=== PATIENT | male | born 1950 | race Caucasian/White ===

== ENCOUNTER 2018-03-05 20:08 | Emergency (ER) | payer OTHER, SELFPAY ==
[2018-03-05 20:15] VITALS: BP 146/76; PULSE 98; RESP 17; TEMP 36.6; O2SAT 95
--- NOTE | 2018-03-05 20:18 | DI.CT_ITS ---
SYMPTOM/DIAGNOSIS: FALL, STRUCK POSTERIOR OCCIPUT CT BRAIN: Noncontrast examination. No priors for comparison The ventricles and sulci are consistent with the patient's age. There is normal escamilla white matter differentiation. No intracranial hemorrhage, midline shift or mass effect identified. The ventricles are intact. The basilar cisterns are patent. No evidence of a skull fracture is seen. The visualized paranasal sinuses are clear. The mastoid air cells are well pneumatized. IMPRESSION: No acute intracranial process. CT CERVICAL SPINE: Multiple contiguous axial images of the cervical spine were obtained. Sagittal and coronal reformatted images were evaluated on the [employer] work station. There is straightening of the normal cervical lordosis. No acute fractures or subluxations are seen. Moderate degenerative changes are present throughout the cervical spine. The bones are normally mineralized. The soft tissues are unremarkable. The lung apices appear clear. IMPRESSION: No acute fracture or subluxation of the cervical spine.
--- NOTE | 2018-03-05 20:22 | W.ED.GENAD ---
Discharge Plan Disposition Patient Disposition: HOME Condition: Good Discharge Details Chief Complaint: GenMedical Clinical Impression: Back pain Primary Care Provider: Gustavo Schmidt ED Provider: Jorge Amaya Home Meds and New Rx's Prescriptions: New cyclobenzaprine 10 mg tablet 10 mg PO TID Qty: 14 RF: 0 acetaminophen [Mapap Extra Strength] 500 MG tablet 1,000 mg PO Q6H 5 Days Qty: 60 RF: 0 lidocaine [Lidoderm] 1 PATCH patch 1 patch Topical Q24H Qty: 4 RF: 0 ibuprofen [Motrin IB] 200 MG tablet 600 mg PO Q6H 5 Days Qty: 60 RF: 0 No Action pen needle, diabetic 1 EACH needle 1 ea Miscellaneous AC & HS Qty: 120 RF: 3 omeprazole 40 MG capsule,delayed release(DR/EC) 40 mg PO DAILY Qty: 90 RF: 2 blood sugar diagnostic [OneTouch Ultra Test] 1 EACH strip 1 ea Miscellaneous AC Qty: 120 RF: 4 lancets 1 EACH misc 1 ea Miscellaneous AC & HS Qty: 120 RF: 5 metformin 1,000 MG tablet 1,000 mg PO BID Qty: 180 RF: 4 escitalopram oxalate [Lexapro] 10 MG tablet 10 mg PO DAILY Qty: 90 RF: 4 diclofenac sodium 75 MG tablet,delayed release (DR/EC) 75 mg PO BID PRNQty: 180 RF: 3 gabapentin 300 MG capsule 300 mg PO HS Qty: 90 RF: 4 lisinopril 10 mg tablet 10 mg PO QAM Qty: 90 RF: 3 simvastatin 20 mg tablet 20 mg PO DAILY Qty: 90 RF: 3 quetiapine 200 mg tablet 200 mg PO HS Qty: 90 RF: 3 tamsulosin 0.4 mg capsule 0.4 mg PO DAILY Qty: 90 RF: 4 blood-glucose meter [xAdTouch Ultra2] 1 EACH kit 1 ea Miscellaneous AC Qty: 1 RF: 0 Discharge Instructions Instructions: Back Pain (ED) Additional Instructions: Please take medications as directed. Please do not operate any heavy machinery, climb ladders, or operate firearms while taking these. If you notice any worsening of your symptoms, or any new symptoms such as vomiting, diarrhea, fever, chills, shortness of breath, chest pain, numbness, numbness or tingling in your groin, bowel or bladder incontinence, weakness, or fainting , please return immediately to the emergency department for reevaluation. Please follow up with your primary care provider as soon as possible for reassessment and reevaluation. As always, it was a pleasure participating in your medical care today. Referrals: Gustavo Schmidt MD [Primary Care Provider] - Medical Decision Making This is a very pleasant 67-year-old male who presents for evaluation of trauma to his head. The patient was walking his dog when he slipped and hit the back of his head. He had no loss of consciousness but did see stars. He is on no blood thinners. Physical exam shows no signs of significant trauma,midline cervical spine tenderness. Because of the mechanism and the patient's age we did discuss imaging versus observation he is requesting imaging which I think is very reasonable. We will get a CT scan of the head and neck to rule out any acute osseous process. Patient does not want anything additional for pain management at this time. 9:05 PM Patient is feeling notably improved after medication administration. Patient's initial bladder scan showed 270 cc, he then subsequently urinated 300 cc of urine. He has no retained urine on exam. X-ray results demonstrate no acute bony process or fracture. There is some notable degenerative disc and facet disease in the lower lumbar spine which is unchanged from prior exam. I feel the patient signs and symptoms are clinically consistent with lumbar ago, muscle sprain, and SI joint pain. Patient continues to demonstrate no focal neurologic deficits, no saddle anesthesia, no significant weakness. I feel that he can be safely discharged home with close follow-up with his primary care provider next week. We discussed red flags for which to immediately return the patient understands. I have extensively reviewed the treatment plan and discharge instructions with the patient and their family. I have addressed all patient concerns at this time. The patient and family was made aware of what symptoms to monitor for that would warrant a return to the emergency department. Discussed the plan with the patient and family, they demonstrate verbal understanding and agreement with our assessment and plan at this time. IMPRESSION: Degenerative disc and facet disease mainly in the lower lumbar spine largely unchanged from the prior exam. IMPRESSION: No evidence of acute bony abnormality. HPI General Date/Time Provider Initiated Documentation: 03/05/18 20:10. HPI Narrative: This is a 67-year-old male with a past medical history of diabetes, hypertension, and spinal stenosis who presents today for evaluation of fall. The patient was out on his deck when he slipped secondary to ice, he slipped and hit the back of his head, he denies a loss of consciousness but he does state that he saw stars. He was able to get up with some assistance. He did experience mild abrasion on his right forearm, but denies any significant pain there. He denies any neck back or chest pain. He does have a mild headache in the back of his head. He did take diclofenac prior to arrival and does not want anything for pain at this time. He denies any aggravating or relieving factors. He denies any visual changes, he denies any numbness tingling or weakness. He has no other complaints at this time. He is not on any blood thinners. He denies any IV or illicit drug use. He denies any recent surgeries. Related Data Home Medications Medication Instructions Recorded Confirmed blood-glucose meter [One Touch #1 kit 08/24/13 02/18/18 Ultra 2] pen needle, diabetic #120 dis.needle 05/02/15 02/18/18 omeprazole 40 mg PO DAILY #90 tab-cap 04/13/17 02/18/18 blood sugar diagnostic [Onetouch #120 strip 04/23/17 02/18/18 Ultra Test Strips] lancets #120 ea 04/23/17 02/18/18 escitalopram oxalate [Lexapro] 10 mg PO DAILY #90 tab 06/15/17 02/18/18 metformin 1,000 mg PO BID #180 tab-cap 06/15/17 02/18/18 diclofenac sodium 75 mg PO BID PRN #180 tab-cap 09/16/17 02/18/18 gabapentin 300 mg PO HS #90 tab-cap 09/20/17 02/18/18 lisinopril 10 mg tablet 10 mg PO QAM #90 tab 12/21/17 02/18/18 simvastatin 20 mg tablet 20 mg PO DAILY #90 tab-cap 12/21/17 02/18/18 quetiapine 200 mg tablet 200 mg PO HS #90 tab-cap 01/20/18 02/18/18 tamsulosin 0.4 mg capsule 0.4 mg PO DAILY #90 capcr 01/20/18 02/18/18 acetaminophen [Mapap Extra 1,000 mg PO Q6H 5 Days #60 tab 03/05/18 Strength] cyclobenzaprine 10 mg PO TID #14 tab 03/05/18 ibuprofen [Motrin Ib] 600 mg PO Q6H 5 Days #60 tab 03/05/18 lidocaine [Lidoderm] 1 patch TOPICAL Q24H #4 patch 03/05/18 Previous Rx's Medication Instructions Recorded blood-glucose meter [One Touch #1 kit 08/24/13 Ultra 2] omeprazole 40 mg PO DAILY #90 tab-cap 04/13/17 blood sugar diagnostic [Onetouch #120 strip 04/23/17 Ultra Test Strips] lancets #120 ea 04/23/17 escitalopram oxalate [Lexapro] 10 mg PO DAILY #90 tab 06/15/17 metformin 1,000 mg PO BID #180 tab-cap 06/15/17 gabapentin 300 mg PO HS #90 tab-cap 09/20/17 lisinopril 10 mg tablet 10 mg PO QAM #90 tab 12/21/17 simvastatin 20 mg tablet 20 mg PO DAILY #90 tab-cap 12/21/17 quetiapine 200 mg tablet 200 mg PO HS #90 tab-cap 01/20/18 tamsulosin 0.4 mg capsule 0.4 mg PO DAILY #90 capcr 01/20/18 acetaminophen [Mapap Extra 1,000 mg PO Q6H 5 Days #60 tab 03/05/18 Strength] cyclobenzaprine 10 mg PO TID #14 tab 03/05/18 ibuprofen [Motrin Ib] 600 mg PO Q6H 5 Days #60 tab 03/05/18 lidocaine [Lidoderm] 1 patch TOPICAL Q24H #4 patch 03/05/18 Allergies Allergy/AdvReac Type Severity Reaction Status Date / Time No Known Allergies Allergy Unverified 02/18/18 13:23 General Stated Complaint: GenMedical [place]: 3 Review of Systems Review of Systems All systems reviewed & are unremarkable except as noted in HPI and below PFSH Surgical History Arthroplasty of knee Cholecystectomy (~2006) knee surgery Family History Mother Heart disease Father Personal history of malignant neoplasm Brother No problems noted. Brother No problems noted. Social History Smoking/Tobacco Use Status: Never Exam Narrative Exam Narrative: 1.Const: Well-nourished, Well-developed, appearing stated age 2.Eyes: PERRL, no conjunctival injection, and symmetrical lids. 3.ENT: Atraumatic external nose and ears. Moist MM. Neck: Symmetric, trachea midline, No thyromegaly. There is no evidence of raccoon eyes, garcia sign, CSF rhinorrhea, mastoid tenderness, cranial crepitus, hemotympanum, exophthalmos, or hyphema. Patient demonstrates intact dentition with no signs of tooth avulsion or fracture, no signs of jaw deformity, no evidence of a LeFort's fracture, with an intact palate, nose and orbital region. There is no evidence of a nasal septal hematoma. No proptosis. Jaw closes symmetrically. Airway is clear. 4.CVS: +S1/S2, No murmurs or gallops. Peripheral pulses 2+ and equal in all extremities. Brisk capillary refill in all extremities. 5.RESP: Unlabored respiratory effort. Clear to auscultation bilaterally. No wheezes rales or rhonchi 6.GI: Soft, Nontender/Nondistended, No hepatosplenomegaly. No guarding or rebound. 7.MSK: Normocephalic/Atraumatic, Extremities w/o deformity or ttp No cyanosis or clubbing, Normal movement of all extremities no midline tenderness to palpation over the CTLS spine. Normal ROM in flexion, extension, side bend, and rotation. Patient has +5 out of 5 strength in the lower extremities in dorsiflexion and plantarflexion, knee flexion and extension, hip flexion and extension. There is +2 over 2 dorsalis pedis pulses bilaterally. There is normal sensation to the skin with light touch at the foot, knee, and hip. Normal saddle sensation. Good sensation over the deep sural nerve area bilaterally. Rectal exam deferred. Reflexes are +2 over 4 in the patellar reflex bilaterally. +5 out of 5 strength in the medial, ulnar, radial nerve distribution bilaterally in the hands as well as intact light touch sensation to these dermatomes on the hands 8.Skin: Warm, Dry. No rashes or lesions. 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 Sensation grossly intact, no focal neurologic deficits. All 6 cardinal planes of vision are fully intact. No evidence of rotatory or vertical nystagmus. The patient demonstrated a normal [id number], good dexterity. There was no evidence of dysdiadochokinesia. Patient was able to ambulate without difficulty. There was no wide-based gait. Romberg, and [id number] are both normal on testing. Sensation was intact bilaterally as well as muscle strength bilaterally for all extremities. Patient was able to verbalize butter cup with no slurring, or miss pronunciation. 10.Psych: (AAO) x3. Appropriate mood and affect Course Vital Signs Temperature 36.6 C 03/05/18 20:15 Pulse 98 H 03/05/18 20:15 Respiratory Rate 17 03/05/18 20:15 Blood Pressure 146/76 H 03/05/18 20:15 Pulse Oximetry 95 03/05/18 20:15 Temperature 36.6 C 03/05/18 20:15 Temperature Source Skin 03/05/18 20:15 Pulse 98 H 03/05/18 20:15 Respiratory Rate 17 03/05/18 20:15 Blood Pressure 146/76 H 03/05/18 20:15 Blood Pressure Position Sitting 03/05/18 20:15 Pulse Oximetry 95 03/05/18 20:15 Oxygen Delivery Method Room Air 03/05/18 20:15 Oxygen Flow Rate 0 03/05/18 20:15
--- NOTE | 2018-03-05 22:18 | DI.VRAD_ITS ---
EXAM: CT Head Without Contrast EXAM DATE/TIME: 03/05/2018 8:20 PM CLINICAL HISTORY: 67 years old, male; Injury or trauma; Fall; Initial encounter; Blunt trauma (contusions or hematomas); Patient HX: Per PT: Fell on ice; Struck posterior occiput TECHNIQUE: Axial computed tomography images of the head/brain without contrast. Coronal and sagittal reformatted images were created and reviewed. COMPARISON: No relevant prior studies available. FINDINGS: Brain: No intracranial hemorrhage or extra-axial fluid collection. No evidence of mass effect or midline shift. Lee-white matter differentiation is intact. Ventricles: No ventriculomegaly. Bones/joints: No acute osseus lesion or fracture. Sinuses: Unremarkable as visualized. Mastoid air cells: Unremarkable. Soft tissues: Unremarkable. IMPRESSION: No acute intracranial pathology. EXAM: CT Cervical Spine Without Contrast EXAM DATE/TIME: 03/05/2018 8:20 PM CLINICAL HISTORY: 67 years old, male; Injury or trauma; Fall; Initial encounter; Blunt trauma (contusions or hematomas); Patient HX: Per PT: Fell on ice; Struck posterior occiput TECHNIQUE: Axial computed tomography images of the cervical spine without intravenous contrast. Coronal and sagittal reformatted images were created and reviewed. COMPARISON: No relevant prior studies available. FINDINGS: Vertebrae: Vertebral body heights are maintained. No locked or perched facets. Multilevel facet arthropathy. No acute fracture. The dens is intact. Atlanto-axial intervals are normal. Straightening of the cervical lordosis. Discs/Spinal canal/Neural foramina: Multilevel degenerative changes with intervertebral disc height loss and osteophyte formation. No significant spinal stenosis. Soft tissues: Unremarkable. Lungs: Lung apices are clear. IMPRESSION: No acute cervical spine fracture. Dictated and Authenticated by: Genaro Wolfe MD. Ordering:KATIE Patel MD
== END 2018-03-05 22:25 | disposition home or self-care (01) ==
PROVIDERS: Emergency Provider Student in an Organized Health Care Education/Training Program; PCP Family Medicine
DX: M54.5 Low back pain (principal); M50.90 Cervical disc disorder, unspecified, unspecified cervical region; W01.0XXA Fall on same level from slipping, tripping and stumbling without subsequent striking against object, initial encounter
CPT/HCPCS: 90471; 99284; 70450; 72125

== ENCOUNTER 2018-06-23 01:18 | Outpatient (CLI) | payer MEDICARE, SELFPAY ==
--- NOTE | 2018-06-23 10:58 | DI.RAD_ITS ---
SYMPTOMS/DIAGNOSIS: LT KNEE PAIN, M25.562 LEFT KNEE: Medial joint space narrowing and articular sclerosis and patellofemoral joint degenerative changes are identified. The findings consistent with severe DJD.
[2018-06-23 12:49] LABS: Anion Gap 12.5 mmol/L (3-11); BUN 17 mg/dL (7-18); CO2 26.5 mmol/L (21.0-32.0); CREATININE 1.26 mg/dL (0.70-1.30); Calcium 9.9 mg/dL (8.5-10.1); Chloride 100 mmol/L (98-107); Cholesterol 203 mg/dL (50-200); Estimated GFR 57.08 (mL/min/1.73m2); Glucose 217 mg/dL (70-100); HDL Cholesterol 30 mg/dL (40-60); LDL CHOLESTEROL 129 mg/dL (<100); Potassium 4.9 mmol/L (3.5-5.1); Sodium 139 mmol/L (136-145); Triglyceride 262 mg/dL (30-150)
== END 2018-06-23 01:38 ==
PROVIDERS: PCP Family Medicine; Visit Provider Family Medicine
DX: M25.562 Pain in left knee (principal); M17.12 Unilateral primary osteoarthritis, left knee; I10 Essential (primary) hypertension
CPT/HCPCS: 36415; 73562; 80048; 80061; 83721

== ENCOUNTER 2018-07-06 09:41 | Outpatient (CLI) | payer MEDICARE, SELFPAY ==
--- NOTE | 2018-07-06 09:38 | DI.RAD_ITS ---
SYMPTOMS/DIAGNOSIS: RIGHT HIP PAIN RIGHT HIP: Severe degenerative changes involving the right hip include joint space narrowing, articular sclerosis, subchondral cyst formation and periarticular hypertrophic spurring. As visualized, the left hip appears intact. SUMMARY: Severe DJD involving the right hip is demonstrated.
== END 2018-07-06 10:01 ==
PROVIDERS: PCP Family Medicine; Referring Provider Family Medicine; Visit Provider Student in an Organized Health Care Education/Training Program
DX: M25.551 Pain in right hip (principal); M16.11 Unilateral primary osteoarthritis, right hip; M87.052 Idiopathic aseptic necrosis of left femur; E11.8 Type 2 diabetes mellitus with unspecified complications; Z79.84 Long term (current) use of oral hypoglycemic drugs
CPT/HCPCS: 36415; 99204; 99213; 73502; 83036

== ENCOUNTER 2018-07-06 10:05 | Outpatient (CLI) | payer OTHER, MEDICARE, SELFPAY | END 2018-07-06 10:25 | PROVIDERS: PCP Family Medicine; Visit Provider Student in an Organized Health Care Education/Training Program | DX: E11.65 Type 2 diabetes mellitus with hyperglycemia (principal) | CPT/HCPCS: 36415; 83036 ==

== ENCOUNTER 2018-11-01 12:45 | Outpatient (CLI) | payer MEDICARE, SELFPAY ==
--- NOTE | 2018-11-01 13:58 | HPE_ITS ---
Date of service: 11/01/18 Assessment and Plan (1) Avascular necrosis of bone of right hip: Current visit: Yes Status: Chronic Right total hip replacement. Hemoglobin A1c was obtained today, and if this value shows that his diabetes is under better control, we will proceed with a right total hip replacement. Details of surgery were discussed with patient as well as risks and pertinent anatomy. All questions were answered. History of Present Illness Chief Complaint: Right hip pain Narrative: Gustavo is a 68-year-old male who c omes in today for a preop visit for a right total hip replacement. He has been having pain in his right hip for quite a while now, and has had improvement in avascular necrosis of the right hip. He has been instructed that the only fix for this would be a total hip replacement, but his medical history has been complicated by uncontrolled diabetes. He states that he has worked very hard with his diet and exercise as much as he can to get his weight down, and also his blood sugars better controlled. He states that over the last couple of months he has had better control of his diabetes. His A1c did jump from 9 to 9.5 and a span of June until August. He states that since then his sugars have been in the ballpark of 120, with only a few instances of higher blood sugars. He has pain with every step that he takes, and avoids stairs now because of hip pain. He states that some days are better than others, but on really bad days he is almost unable to walk at all. He has difficulty putting on his shoes and socks, and has to use an assistive device to do so. At this point he hopes he has optimized his diabetes enough to be able to move forward with a total hip replacement. Because of his body habitus, Dr. Gregg did describe a posterior approach total hip replacement. Gustavo agrees with this plan and is anxious to proceed. Pertinent Surgical Information Gustavo has a history of uncontrolled diabetes which she is working towards getting under control. His surgery has been postponed previously because of uncontrolled diabetes. We will get an A1c today to show hopefully that his diabetes is under better control. If not we may have to postpone again. Patient denies history of CVA, GA, angina, asthma, COPD, renal or liver disorders, hepatitis, bleeding disorders, immune or thyroid disorders. He states that he was told after 1 of his knee arthroscopies that he had trouble with his O2 saturation after anesthesia. He did not have any issues with his anesthesia after the laparoscopic cholecystectomy. Review of Systems Constitutional Denies fever(s) ENT Denies dizziness and Denies sore throat Cardiovascular Denies chest pain, Denies palpitations and Denies dyspnea Respiratory Denies cough and Denies dyspnea Gastrointestinal Denies abdominal pain, Denies melena, Denies hematochezia, Denies diarrhea, Denies nausea and Denies vomiting Genitourinary Denies hematuria and Denies dysuria Neurologic Denies dizziness Endocrine Denies palpitations [facility] Medical History Hyperlipidemia (Chronic) Hypertension (Chronic) PTSD (post-traumatic stress disorder) (Chronic) Uncontrolled type 2 diabetes mellitus without complication, without long-term current use of insulin (Chronic 04/23/17) Surgical History Cholecystectomy (~2006) History of arthroscopy of knee (Resolved) Status post cholecystectomy (Resolved) Family History Mother Heart disease Father Personal history of malignant neoplasm Brother No problems noted. Brother No problems noted. Social History (Updated 11/01/18 @ 14:12 by YEN Bundy) Smoking/Tobacco Use Status: Never Drug use: Daily Substance use type: marijuana Do you feel safe in your relationship?: Yes Meds Home Medications Medication Instructions Recorded Confirmed Type blood-glucose meter [One Touch #1 kit 08/24/13 09/02/18 Rx Ultra 2] diclofenac sodium 75 mg PO BID PRN #180 tab-cap 09/16/17 11/01/18 History lisinopril 10 mg tablet 10 mg PO QAM #90 tab 12/21/17 11/01/18 Rx simvastatin 20 mg tablet 20 mg PO DAILY #90 tab-cap 12/21/17 11/01/18 Rx quetiapine 200 mg tablet 200 mg PO HS #90 tab-cap 01/20/18 11/01/18 Rx tamsulosin 0.4 mg capsule 0.4 mg PO DAILY #90 capcr 01/20/18 11/01/18 Rx escitalopram oxalate 10 mg tablet 10 mg PO DAILY #90 tab 07/15/18 11/01/18 Rx metformin 1,000 mg tablet 1,000 mg PO BID #180 tab-cap 07/15/18 11/01/18 Rx omeprazole 40 mg capsule,delayed 40 mg PO DAILY #90 tab-cap 07/15/18 11/01/18 Rx release pen needle, diabetic 29 gauge x #100 each 07/15/18 09/02/18 Rx 1/2 insulin detemir U-100 100 unit/mL 10 unit SC DAILY #15 ml 07/22/18 11/01/18 Rx (3 mL) subcutaneous pen blood sugar diagnostic #200 strip 08/29/18 09/02/18 Rx lancets 33 gauge #120 ea 09/12/18 Rx oxycodone-acetaminophen 5 mg-325 1 tab PO HS PRN #20 tab MDD 1 tab 10/19/18 11/01/18 Rx mg tablet gabapentin 300 mg capsule 300 mg PO HS PRN #90 tab-cap 11/01/18 11/01/18 Rx Allergies Allergy/AdvReac Type Severity Reaction Status Date / Time No Known Allergies Allergy Verified 11/01/18 13:08 Exam [facility] Head: normocephalic and atraumatic General nose exam: no nasal discharge Throat: uvula midline and no uvular edema Other: soft palate rises symmetrically, no erythema Eyes Conjunctivae: conjunctivae normal Sclera: sclerae normal Pupils: PERRL Resp Effort & Inspection: normal respiratory effort Auscultation: clear to auscultation bilaterally and no wheezes Cardio Rate: regular rate Rhythm: regular rhythm Heart Sounds: S1 normal, S2 normal and no murmurs GI Palpation: soft, no hepatosplenomegaly and nontender Auscultation: normal bowel sounds Results Labs : 11/01/18 13:54 11/01/18 13:54
[2018-11-01 14:24] LABS: Hemoglobin A1C 6.9 % (4.5-6.2)
[2018-11-01 15:02] LABS: BUN 20 mg/dL (7-18); CREATININE 1.21 mg/dL (0.70-1.30); Calcium 9.8 mg/dL (8.5-10.1); Chloride 105 mmol/L (98-107); Estimated GFR 59.82 (mL/min/1.73m2); Glucose 104 mg/dL (70-100); Potassium 4.4 mmol/L (3.5-5.1); Sodium 140 mmol/L (136-145)
[2018-11-01 15:23] LABS: HCT 44.1 % (40.0-50.0); HGB 14.8 g/dL (13.5-17.5); Mean Corp. HGB Concentration 33.6 g/dL (32.0-36.0); Mean Corpuscular Hemoglobin 29.3 pg (27.0-33.0); Mean Corpuscular Volume 87.3 fL (80-95); Mean Platelet Volume 10.4 fL (8.0-11.0); Platelet Count 362 x1000/uL (130-400); RBC 5.05 m/cumm (4.50-6.00); RBC Distribution Width 13.7 % (11.8-14.1); White Blood Cell Count 13.57 k/cumm (4.4-10.8)
== END 2018-11-01 13:05 ==
PROVIDERS: PCP Family Medicine; Visit Provider Student in an Organized Health Care Education/Training Program
DX: Z01.812 Encounter for preprocedural laboratory examination (principal); E11.9 Type 2 diabetes mellitus without complications; M16.12 Unilateral primary osteoarthritis, left hip; Z01.818 Encounter for other preprocedural examination; M87.051 Idiopathic aseptic necrosis of right femur
CPT/HCPCS: 36415; 80048; 85027; 86850; 86900; 86901; NC; 83036

== ENCOUNTER 2018-11-08 10:21 | Inpatient (IN) | payer MEDICARE, SELFPAY ==
[2018-11-01 13:01] VITALS: BP 137/88; PULSE 113; RESP 18; TEMP 37.2; O2SAT 96
[2018-11-08] VITALS (10 sets, daily range): BP systolic 95–163; BP diastolic 40–87; PULSE 78–91; RESP 13–20; TEMP 35.8–37; O2SAT 94–98
[2018-11-08] MEDS: Lactated Ringers 1,000 ML 80 ML IV ×2 (11:12→14:35)
[2018-11-08] MEDS: Acetaminophen 500 MG TAB 1000 MG PO ×2 (11:13→20:23)
[2018-11-08] MEDS: Celecoxib 200 MG CAP 400 MG PO (11:13)
[2018-11-08] MEDS: oxyCODONE-CR 10 MG TABCR PO (11:14)
[2018-11-08] MEDS: ceFAZolin 3,000 MG in Normal Saline 100 ML 200 MG IVPB (13:43)
[2018-11-08] MEDS: Bupivacaine 0.25% Pres-Free 30 ML VIAL (15:18)
[2018-11-08] MEDS: Ketorolac 30 MG/ML VIAL (15:19)
[2018-11-08] MEDS: Normal Saline 20 ML VIAL (15:19)
--- NOTE | 2018-11-08 15:57 | DI.RAD_ITS ---
SYMPTOMS/DIAGNOSIS: AVASCULAR NECROSIS, BONE OF RIGHT HIP RIGHT HIP IN THE OR: Fluoroscopy Time: 75.2 seconds C-arm fluoroscopy was utilized by Dr. Gregg during placement of right total hip replacement. Hard copies show acetabular and femoral components in good position.
--- NOTE | 2018-11-08 16:20 | DI.RAD_ITS ---
SYMPTOM/DIAGNOSIS: S/P NOMI AP PELVIS: AP view of the pelvis was obtained and shows a total hip joint replacement in position. The components appear well seated. No other significant bony abnormality is seen.
--- NOTE | 2018-11-08 16:37 | DI.VRAD_ITS ---
EXAM: XR Pelvis EXAM DATE/TIME: 11/08/2018 1:56 PM CLINICAL HISTORY: 68 years old, male; Other: PT S/P cleo; Prior surgery; Surgery date: Post-operative (0-2 days); Patient HX: Post-op films TECHNIQUE: Imaging protocol: XR pelvis. Views: 1 or 2 view. COMPARISON: CR XR hip RT complete AP pelvis 07/06/2018 9:46 AM FINDINGS: Bones/joints: Noncemented right total hip arthroplasty is anatomically aligned. No other radiopaque retained surgical foreign body is identified. Left hip joint is intact. Soft tissues: See Bones/joints Finding. IMPRESSION: No radiographic evidence of postoperative complication. Dictated and Authenticated by: Vinnie Quiroz MD. Ordering:LOC Coronado MD
[2018-11-08] MEDS: oxyCODONE 5 MG TAB PO (17:25)
[2018-11-08] MEDS: Simvastatin 20 MG TAB PO (20:22)
[2018-11-08] MEDS: metFORMIN 500 MG TAB 1000 MG PO (20:22)
[2018-11-08] MEDS: Celecoxib 200 MG CAP PO (20:23)
[2018-11-08] MEDS: Aspirin E.C. 81 MG TABEC PO (20:23)
--- NOTE | 2018-11-08 20:52 | ROE_ITS ---
Date of service: 11/08/18 Time of Service: 17:52 Operative Note DATE OF PROCEDURE: 11/08/18 PRE-OP DIAGNOSIS: Right Hip Avascular Necrosis POST-OP DIAGNOSIS: same PROCEDURE: Right Anterior Total Hip Arthroplasty SURGEON: Cliff Gregg MANDATE RETAIL SERVICE MERCHANDISER: Mario Montalvo ANESTHESIA: spinal ESTIMATED BLOOD LOSS: 400 PATHOLOGY: none sent COMPLICATIONS: None Patient was transported to: PACU Patient's condition: stable Implants: 1. Depuy [place]edar Creek Acetabular Component, 52 mm 2. Depuy Acetabular Liner, 52 x 36 mm, +4 lateralized 3. Depuy Corail standard Collared femoral Stem, Size 12 4. Depuy Altrx Ceramic Femoral Head, Size 36 +1.5 mm Indications: I have seen Gustavo in clinic for symptoms of hip arthritis from avascular necrosis, confirmed with radiographic findings. Gustavo has exhausted nonoperative methods and was having significant limitations in daily function and desired better function and less pain. I discussed the technical details of a hip replacement. I explained the risks of the procedure to include, but not limited to, bleeding, infection, pain, stiffness, fracture, damage to nerves and vessels, damage to muscles and tendons, loosening, instability, leg length inequality, need for repeat procedure, blood clot and cardiopulmonary demise. Initial plan was for a posterior approach given his habitus and large pannus. Since the initial consultation he has lost some weight and truly desired an anterior approach given his research that he had performed. I was very honest with Gustavo on the day of surgery that there is some increased risk for wound breakdown and also intraoperative fracture given his size and pannus. I did examine him in the supine position on the day of surgery which showed the bili was able to be cleared mostly out of the way and there was no skin breakdown in the groin fold. After reviewing all of these risk and additional time, he desired the anterior approach. After all questions were answered and risks discussed, Gustavo elected to proceed. Findings: There was significant signs of arthritis throughout the hip. The superior femoral head had obvious signs of osteonecrosis. Procedure Description: Gustavo was greeted in the preoperative holding area where the correct side was identified and marked. The consent was reviewed with the patient and signed. The history and physical was updated. All questions were answered. Gustavo was taken back to the operating room. A spinal anesthestic was then administered. The patient was placed into the supine position on the operating room table. The patient was then positioned onto the ARCH table. Both feet were wrapped with Webrill cotton wrap along with Coban. The feet were placed in specialized boots for the ARCH table, well seated within the boot and secured. SCDs were applied. The patient was then slid down onto a peroneal post and the nonoperative leg was secured in a leg conde attached to the table. The operative side was placed into the ARCH table attachment and bed height and positioning was secured. A preoperative AP pelvis was obtained to serve as a reference for determining leg lengths. Prophylactic antibiotics in the form of cefazolin were administered. 1g of Tranxemic Acid was given intravenously within 30 minutes of incision. The right leg was then prepped with Chloraprep and draped in a standard fashion with a large shower-curtain type drape with Iodine impregnated skin protection. A timeout to confirm correct identity, side and site, procedure, allergies, anesthesia, and medical concerns was performed. An obliquely oriented incision was made starting lateral to the ASIS and running distal over the Tensor Fascia Lucy (TFL) muscle belly toward the fibular head, approximately 10cm. The skin and soft tissue was dissected sharply, through Karan?s fascia, and to the fascia of the TFL. With the fascia and superior border of the IT band identified, the fascia was incised with a new knife just above any perforators from the IT band. The TFL muscle belly was bluntly dissected away from the fascia and moved laterally. The fat between TFL and rectus was identified to ensure the dissection was not within the TFL. Blunt dissection created space between abductors and the capsule and retractor was placed over the lateral femoral neck. The fibers of the rectus femoris tendon were identified and these were freed from the anterior capsule. A second cobra retractor was placed around the medial femoral neck. The TFL was further retracted laterally to show the deep fascia. Careful dissection through this layer identified three main crossing vessels of the lateral femoral circumflex. These were cauterized in multiple locations and then cut without any noticeable bleeding. The TFL was further released bluntly from the deep fascia to expose anterior hip capsule and fat the Prashant orthopaedic retractor was then placed beneath the TFL and against sartorius and medial soft tissues to protect and retract the soft tissues. A T-capsulotomy was then performed starting at the superior lateral acetabulum and moving distally to the intertrochanteric ridge. These capsular flaps were tagged with a No. 1 Ethibond and elevated from within. The capsular flaps were released to the shoulder of the lateral neck and to the lesser trochanter to give excellent visualization of the proximal femur. A neck osteotomy was performed using an oscillating saw based on preoperative templates. This cut started in the shoulder and of the lateral neck and exited medially. The saw was at all times directed medially to avoid injury to the greater trochanter. 6cm of traction was applied to the leg and the osteotomy opened. The femoral head was removed with a corkscrew, making sure to protect the TFL on its exit. This was measured on the back table to determing the starting reamer size. Portions of the rectus obscuring visualization were minimally elevated off the superior acetabulum. An anterior retractor was placed over the anterior wall between capsule and labrum. A posterior retractor was placed similarly. This provided excellent visualization. The contents of the cotyloid fossa were removed with electrocautery and the labrum was removed with a knife. There was a notable floor osteophyte. Acetabular reaming began with a 47 mm reamer. This first reaming was directed anterior to posterior and medial to get down to the true floor. This was inspected and reamed until the true floor was reached. I then reamed sequentially up to a 51 mm reamer where good fit was obtained. The larger reamers were oriented based on anatomical reference of the anterior and lateral keane to ensure proper abduction and anteversion. Positioning and size was confirmed with the fluoroscopy. A 52 mm Depuy [place] acetabular component was selected. The acetabulum was reamed around the periphery with the selected acetabular size to prevent a rim fit. The deep tissues were irrigated. The acetabular component was then impacted in a position of about 40-45 degrees of abduction and 15-20 degrees of anteversion, using the patient?s anatomy as the ultimate landmark. Fluoroscopy was used to confirm this. There was excellent education department registrar of the acetabular component and the inserting handle was removed. The acetabular liner, Depuy 52 x 36 mm +4 lateralized polyethylene liner, was inserted and lined up with the tines of the acetabular component. There was no soft tissue interposition. The liner was then impacted into position and confirmed to be well-seated. A portion of the kevin-articular cocktail was then injected around the acetabulum into the capsule and periosteum. This cocktail consisted of 50cc of 0.25% Bupivicaine and 20cc of Exparel, expanded to a total of 120cc. Traction was released from the femur. The leg was rotated to 120 degrees. Any remaining medial capsule was released until the lesser trochanter was easily palpable. A Horner retractor was placed medially. The lateral capsule was further released into the shoulder to allow access to the greater trochanter. A Horner retractor was placed over the greater trochanter which allowed the trochanter to flip in front of the capsule for excellent exposure. The leg was brought down into maximal extension and 20 degrees of adduction while ensuring there was no impingement on the acetabulum. Any remnant capsule within the trochanter was released. Piriformis and obturator externis were identified and protected. There was excellent access to the proximal femur. The lateral neck remnant was removed with a rongeur. A blunt canal probe was used to identify the canal and trajectory for later broaching. A box osteotome initiated the broach course. A small curved rasp and a curved curette were used to work laterally. Broaching then began with a size 8 Corail broach. This was inserted manually around the trochanter and into the canal before mallet blows. The broach was seated to a few millimeters below the cut level based on the neck cut and the preoperative template. Sequential broaching was continued until a tight fit was obtained with good rotational control of the femur. A trial standard neck was inserted along with a 1.5 trial head. The leg was brought out of extension and adduction and then reduced with traction and internal rotation. The leg was stable anteriorly in a position of 30 degrees of extension and 90 degrees of external rotation. Fluoroscopy was used to ensure there was no fracture and the stem was seated well. Leg lengths were checked with an AP pelvis and pelvic reference points. Once content with the desired offset and leg lengths, the leg was brought back into extension, external rotation and adduction. The periosteum and surrounding tissue was injected with remaining portion of the kevin-articular cocktail. The proximal femur was irrigated as well as the deep tissues. The TDI Basslineuy Corail standard collared stem, size 12, was then manually inserted into the proximal femur making sure to control rotation. It was then malleted into position with light blows, giving breaks to allow bone expansion and decrease risk of fracture. The selected Depuy Altrx Ceramic Head, size 36+1.5 mm, was then placed onto the clean and dry trunnion and secured with impaction onto the tapered fit. The leg was brought back out of extension and adduction and reduced with traction and internal rotation. Stability was confirmed with no shuck at 90 degrees of external rotation and 30 degrees of extension. No impingement through range of motion arc. Final x-ray images were obtained with fluoroscopy to confirm adequate positioning and no intraoperative fracture. The deep tissues were thoroughly irrigated with a pulse lavage. The second dose of TXA 1g was administered intravenously. The capsule was then reapproximated with the previously placed Ethibond sutures. The TFL fascia was finally closed with a No. 2 Stratafix, barbed suture. Deep tissues were then reapproximated with 0 Vicryl and a running 2-0 Vicryl. The skin was closed with a running 4-0 Monocryl in a subcuticular fashion. This was reinforced with skin glue. A Mepilex silver dressing was applied. At the end of the case, all counts were correct. Gustavo was transferred to the hospital bed without difficulty and suffering no apparent complication. Gustavo has a good prognosis. Physical therapy will start today and without restrictions, weight-bearing as tolerated. Aspirin 81mg BID will be used for DVT prophylaxis.
[2018-11-08] MEDS: QUEtiapine 100 MG TAB 200 MG PO (21:54)
[2018-11-09] MEDS: Lactated Ringers 1,000 ML 80 ML IV (00:48)
[2018-11-09 03:24] VITALS: BP 121/79; PULSE 86; RESP 19; TEMP 35.8; O2SAT 97
[2018-11-09] MEDS: oxyCODONE 5 MG TAB PO (04:05)
[2018-11-09 06:54] LABS: HCT 38.9 % (40.0-50.0); HGB 12.7 g/dL (13.5-17.5); Mean Corp. HGB Concentration 32.6 g/dL (32.0-36.0); Mean Corpuscular Hemoglobin 29.3 pg (27.0-33.0); Mean Corpuscular Volume 89.6 fL (80-95); Mean Platelet Volume 10.1 fL (8.0-11.0); Platelet Count 324 x1000/uL (130-400); RBC 4.34 m/cumm (4.50-6.00); RBC Distribution Width 13.3 % (11.8-14.1); White Blood Cell Count 11.58 k/cumm (4.4-10.8)
[2018-11-09 07:20] LABS: BUN 14 mg/dL (7-18); Calcium 8.9 mg/dL (8.5-10.1); Chloride 105 mmol/L (98-107); Glucose 130 mg/dL (70-100); Potassium 4.3 mmol/L (3.5-5.1); Sodium 140 mmol/L (136-145)
[2018-11-09 07:51] VITALS: BP 138/76; PULSE 85; RESP 16; TEMP 37; O2SAT 97
[2018-11-09] MEDS: Lisinopril 10 MG TAB PO (07:55)
[2018-11-09] MEDS: Escitalopram 10 MG TAB PO (07:56)
[2018-11-09] MEDS: metFORMIN 500 MG TAB 1000 MG PO (07:56)
[2018-11-09] MEDS: Omeprazole 20 MG CAPCR PO (07:56)
[2018-11-09] MEDS: Tamsulosin 0.4 MG CAPCR PO (07:56)
[2018-11-09] MEDS: Celecoxib 200 MG CAP PO (07:56)
[2018-11-09] MEDS: Acetaminophen 500 MG TAB 1000 MG PO (07:56)
--- NOTE | 2018-11-09 09:36 | PDOC.CMIN ---
Care Management Initial Assess REASON FOR HOSPITALIZATION:: (L) HIP PAST MEDICAL HISTORY/PAST SURGICAL HISTORY:: Hyperlipidemia, Hypertension, PTSD, Uncontrolled type 2 DM, cholecystectomy, arthroscopy of knee, cholecystectomy PREVIOUS FUNCTIONAL STATUS/SOCIAL/FAMILY SUPPORTS:: Gustavo resides alone in [place], [place]. He is independent with ADLs at baseline. His daughter, Caitlin and grandson reside locally as well. He is independent at baseline and employed at [employer] in [place]. CURRENT FUNCTIONAL STATUS:: Gustavo was sitting up in his chair when CM met with him. He was pleasant in interaction and forthcoming with information. ADVANCE DIRECTIVES:: On file at [employer]. Has patient been provided with information about the portal?: Yes Did the patient sign up for the portal?: Yes (Previously ) CODE STATUS:: DNR/DNI INSURANCE COVERAGE / FINANCIAL ISSUES:: AARP. [facility]. Medicare CURRENT HOME/COMMUNITY SERVICES/EQUIPMENT:: Glucose meter and test strips PRIMARY CARE PHYSICIAN:: Dr. Orosco POTENTIAL DISCHARGE NEEDS:: Follow up appointment with Dr. Gregg, PT evaluation. PATIENT/FAMILY EDUCATION NEEDS:: Review of discharge instructions, discuss Ask Me Three. ANTICIPATED BARRIERS TO DISCHARGE:: None identified. TRANSPORTATION:: Via private vehicle with family. PLAN:: Gustavo will return home when ready per MD, he will follow up with Dr. Gregg and his PCP as well as his plan of care as directed. Anticipate new home health orders for PT upon discharge, CM notified [facility] of pending orders. He will transport via private vehicle with family.
--- NOTE | 2018-11-09 10:04 | PT.INIE ---
Date of service: 11/09/18 Time of Service: 09:30 PT Notes Inpatient Physical Therapy Evaluation Date: 11/09/18 Referring Doctor: Dr. Gregg PT Orders: PT CONSULT: right hip AVN, s/p anterior NOMI Precautions: WBAT RLE Patient Profile/Admitting Diagnosis: Patient evaluated post-op day 1 after anterior NOMI. PMHX: DM, PTSD, HTN, hyperlipidemia Social History/Home Situation: Patient lives alone in a single level apartment with 2STE. He is independent with all ADLs and self-care. Works here at [employer] in [place]. He reports that he has been using a cane intermittently leading up to his surgery. Equipment Owned/DME: cane, grab rails in bathroom Subjective: Patient states that he's feeling well. He is anxious to return home. Objective: General Observation: Resting comfortably in chair with no lines. Mental Status: A and O x3 Pain: 1/10 ROM: Right Upper Extremity: WFL Left Upper Extremity: WFL Right Lower Extremity: Active hip flexion to 100 degrees. Knee motion full and painfree. Left Lower Extremity: WFL Strength: Right Upper Extremity: WFL Left Upper Extremity: WFL Right Lower Extremity: Quad 3/5 or greater. Hamstrings 3/5 or greater. Hip flexion 3/5 or greater. No direct manual muscle testing performed due to acute postoperative status. Left Lower Extremity: WFL Sensation: intact distally Bed Mobility/Transfers: supine-sit: independent sit-supine: independent Bed?chair: Independent with straight cane Gait: Patient ambulates 150 feet with FW W and supervision only. He transitions to utilization of straight cane in the left upper extremity, with need for supervision only. Demonstrates a step through gait pattern without any significant antalgia or ataxia. Patient was instructed in stair management, which he performs with unilateral upper remedy support. He ascends and descend therapeutic stairs x3. Balance: Static Sitting: Normal Dynamic Sitting: Normal Static Standing: Good Dynamic Standing: Fair Special Tests: Mobility Limitations Standardized Measure [facility] AM-PAC 6 clicks Basic Mobility Inpatient Short Form: Raw Score: 24 CMS Score: 0% deficit Informed Consent/Education: Patient instructed in purpose of PT consult and plan of care. He was oriented to postop packet, and instructed in home exercise program consisting of ankle pumps, quad sets, glutes sets, heel slides for 10 repetitions each, 3 times per day. Assessment: Patient is a 68 year old male referred to physical therapy services with the diagnosis of right hip AVN, status post anterior NOMI 11/07/2018. Patient presents with clinical signs and symptoms consistent with postoperative status. He demonstrates excellent functional mobility and safety, and is anxious to return home later today. He was offered the option of issuing an FW W, although patient prefers to continue utilization of straight cane, which he was able to demonstrate effectively during our session today, without increase in pain or loss of balance. Patient was able to safely navigate stairs and household distance ambulation, and is appropriate for safe discharge from PT in acute care setting. Patient is assessed as a Low 53878 complexity based on the following: History: 68-year-old male postop day 1 after left anterior NOMI. Medical history is significant for poorly controlled diabetes, obesity and chronic pain. Examination: Decreased activity tolerance Presentation: Stable Decision Making: Low complexity Plan of Care/Treatment Plan: No further PT services required in acute care setting. DISCHARGE RECOMMENDATIONS: Home, with no equipment needs TREATMENT CODE/TIME: [id number] ([id number]) Tere Jaime, PT, DPT [facility]
[2018-11-09] MEDS: Normal Saline Flush 10 ML SYR IV (11:32)
--- NOTE | 2018-11-09 11:35 | W.PM.DS.N ---
Date of service: 11/09/18 Time of Service: 11:35 DS: Diagnosis Discharge Diagnosis (1) Avascular necrosis of bone of right hip: Status: Chronic Discharge Plan Disposition Patient Disposition: HOME W/HOME HEALTH SERVICE Condition: Good Discharge Details Reason For Visit: (L) HIP Admit Date/Time: 11/08/18 10:21 Admit Provider: Cliff Gregg Attending Provider: Cliff Gregg Primary Care Provider: Jesse Schmidt Hospital Course Hospital Course: Patient was admitted to the medical/surgical floor following the procedure. It was tolerated well without any notable medical, surgical, or anesthetic complications. Mobilization began postoperatively. The humphrey catheter was removed and voiding spontaneously. Vitals were stable. Physical therapy worked with the patient and was cleared for discharge home. No acute medical issues. Home Meds and New Rx's Prescriptions: New aspirin 81 mg tablet,delayed release (DR/EC) 81 mg PO BID Qty: 60 RF: 0 acetaminophen 500 mg tablet 1,000 mg PO Q8H PRN (Reason: pain) Qty: 90 RF: 3 oxycodone 5 mg tablet 5 mg PO Q6H PRN PRNQty: 12 RF: 0 Continued metformin 1,000 mg tablet 1,000 mg PO BID Qty: 180 RF: 4 omeprazole 40 mg capsule,delayed release(DR/EC) 40 mg PO DAILY Qty: 90 RF: 2 (DME) pen needle, diabetic 29 gauge x 1/2 needle 1 ea Miscellaneous AC & HS Qty: 100 RF: 4 escitalopram oxalate [Lexapro] 10 mg tablet 10 mg PO DAILY Qty: 90 RF: 4 diclofenac sodium 75 MG tablet,delayed release (DR/EC) 75 mg PO BID PRNQty: 180 RF: 3 lisinopril 10 mg tablet 10 mg PO QAM Qty: 90 RF: 3 simvastatin 20 mg tablet 20 mg PO DAILY Qty: 90 RF: 3 quetiapine 200 mg tablet 200 mg PO HS Qty: 90 RF: 3 tamsulosin 0.4 mg capsule 0.4 mg PO DAILY Qty: 90 RF: 4 Levemir FlexTouch U-100 Insuln 100 unit/mL (3 mL) insulin pen 10 unit SC DAILY Qty: 15 RF: 4 (DME) OneTouch Ultra Test strip 1 ea Miscellaneous AC Qty: 200 RF: 4 (DME) lancets 33 gauge misc 1 ea Miscellaneous AC & HS Qty: 120 RF: 5 gabapentin 300 mg capsule 300 mg PO HS PRNQty: 90 RF: 4 (DME) blood-glucose meter [OneTouch Ultra2 Meter] 1 EACH kit 1 ea Miscellaneous AC Qty: 1 RF: 0 Discontinued oxycodone-acetaminophen 5-325 mg tablet 1 tab PO HS MDD 1 tab PRN (Reason: pain) Qty: 20 RF: 0 Discharge Instructions Additional Instructions: Dr. Gregg?s Total Hip Discharge Instructions Activity: The most important activity is to walk. You should try to take short walks a few times a day. You have no restrictions on movement or positioning, but do not try to force what you do. You will find some stiffness and weakness with hip flexion (lifting your knee). Do not try to strengthen this too early, continue to practice walking and stairs and this will come. - You should wear the ANNABELLE hose on both legs for 2 weeks. Dressing: Keep the surgical dressing in place for at least one week. After the first week it may be removed and replace with light gauze and tape or nothing. It may get wet after 3 days but avoid soaking the dressing. If it gets wet, just lightly pat dry. It is important to always keep some gauze between skin folds, especially when you are sitting. Spend some time with the wound exposed when you are lying flat as the incision does wrinkle onto itself. Medications: - You should take Tylenol and an anti-inflammatory Diclofenac as your primary pain control medications - You have been prescribed a stronger pain medication Oxycodone for breakthrough pain, take as needed as prescribed. - You have should continue your stomach acid reduction agent Omeprazole to help reduce stomach acid and reflux. - You will be taking Aspirin 81mg twice a day for DVT prevention unless instructed otherwise. - If you have constipation you should take Colace or Miralax (both [id number]). It takes most people 3-4 days to have a bowel movement. Follow-up: 2 weeks 1. Encounter Date and Reason I certify that JESSE VILLEGAS was seen by Cliff Gregg MD on 11/09/18 and that I had a [id number] encounter with this patient that meets the physician face to face encounter requirements. 2. Clinical Findings Supporting Skilled Need and Homebound Status I certify that home health services are medically necessary, include either intermittent snf and/or physical/speech therapy, and that this patient is homebound in that absences from the home require considerable and taxing effort and are infrequent or of short duration, or are attributable to the need to receive medical care. [X] (a) Attached documentation from encounter provides clinical findings supporting skilled need and homebound status (including what assistance patient requires to leave the home). The encounter with the patient was in whole, or in part, for the following medical condition, which is the primary reason for home health care: (L) HIP Assisted: Physical Therapy: Jesse will benefit from physical therapy. He has notable weakness, gait alterations, and restrictions in motion status post right anterior hip replacement. He does not have hip precautions. He should use an assistive device for ambulation until cleared by physical therapy. Speech Therapy: Homebound: Jesse is unable to leave his home unassisted. He requires assistance to leave and is unable to drive. He has notable changes to his gait restricting his ability to leave unassisted. 3. Certification and Authentication I certify that I composed the above information based on my clinical judgement relating to this patient's medical condition and, if applicable, clinical findings communicated to me by the NPP or inpatient physician who performed the Home Health Referral. All further orders will be obtained through Dr. Gregg Referrals: Cliff Gregg MD [ [facility] STAFF PHYSICIAN] - Activity:: Activity as Tolerated Equipment/Supplies:: Walker Diet:: As Tolerated Discharge Orders Discharge Orders: Discharge Order (Routine); Ordered 11/09/18 Ordered By: Cliff Gregg DS: Data Vitals/I&O Vitals and I&O: Vital Signs Temperature 37.0 C 11/09/18 07:51 Temperature Source Tympanic 11/09/18 07:51 Pulse 85 11/09/18 07:51 Pulse Rhythm Regular 11/09/18 07:28 Respiratory Rate 16 11/09/18 07:51 Respiratory Effort Non-Labored 11/09/18 07:28 Respiratory Depth Normal 11/09/18 07:28 Respiratory Pattern Normal 11/09/18 07:28 Blood Pressure 138/76 11/09/18 07:51 Pulse Oximetry 97 11/09/18 07:51 Respiratory End-tidal CO2 41 11/08/18 16:56 Oxygen Delivery Method Room Air 11/09/18 07:51 Oxygen Flow Rate 0 11/09/18 07:51 Pain Level 5 11/09/18 04:05 Intake & Output 11/08/18 11/08/18 11/09/18 11:59 23:59 11:59 Intake Total 2590 / 2590 1443.333 / 1443.333 Output Total 700 / 700 1600 / 1600 Balance 1890 / 1890 -156.667 / -156.667 Weight 112.4 kg Intake: IV 2320 / 2320 563.333 / 563.333 Oral 270 / 270 880 / 880 Output: Urine 300 / 300 1600 / 1600 Estimated Blood Loss 400 / 400 Other: Urine Color Dark Jenn Light Jenn Urine Appearance Clear Clear Clear Urine Odor Normal Comment some leakage noted, humphrey checked, and itn is patent and draining Emesis Description None Voiding Methods Toilet Labs on day of discharge: Labs from last 24 hours 11/09/18 11/09/18 06:30 06:30 WBC 11.58 H RBC 4.34 L Hgb 12.7 L Hct 38.9 L MCV 89.6 MCH 29.3 MCHC 32.6 RDW 13.3 Plt Count 324 MPV 10.1 Sodium 140 Potassium 4.3 Chloride 105 Carbon Dioxide 27.0 Anion Gap 8.0 BUN 14 Creatinine 1.00 Estimated GFR/1.73 m2 >= 60.00 Glucose 130 H Calcium 8.9 PFSH Medical History Hyperlipidemia (Chronic) Hypertension (Chronic) PTSD (post-traumatic stress disorder) (Chronic) Uncontrolled type 2 diabetes mellitus without complication, without long-term current use of insulin (Chronic 04/23/17) Surgical History Cholecystectomy (~2006) History of arthroscopy of knee (Resolved) Status post cholecystectomy (Resolved) Family History Mother Heart disease Father Personal history of malignant neoplasm Brother No problems noted. Brother No problems noted. Social History Smoking/Tobacco Use Status: Never Drug use: Daily Substance use type: marijuana Do you feel safe in your relationship?: Yes
--- NOTE | 2018-11-09 15:03 | CHAPLAIN ---
Gustavo was sitting up in his chair when I visited. He expects to be discharged later today. He compared his current pain to getting hit in the leg during a tackle in a football game with a helmet striking his hip. 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
--- NOTE | 2018-11-09 16:02 | PDOC.CMDIS ---
LACE Index Scoring Tool - Questions: Length of Stay (in days): 1 Comorbidities: Diabetes w/o Complication E.D. Visits: 1 Care Management Discharge Reason for Hospitalization: (L) HIP Discharge Plan: Gustavo will return home when ready per MD, he will follow up with Dr. Gregg and his PCP as well as his plan of care as directed including new home health orders for PT upon discharge. CM notified [facility] of pending orders. Gustavo will transport via private vehicle with his grandson. Patient/Family Education Needs: Review discharge instructions, follow up plan of care. Services Needed at Discharge: Home Health Care Services (PT )
== END 2018-11-09 12:35 | disposition home health service (06) | DRG 470 ==
LOC: PDS 14:37 → MS 11-09 09:54
PROVIDERS: Admitting Provider Student in an Organized Health Care Education/Training Program; PCP Family Medicine; Visit Provider Student in an Organized Health Care Education/Training Program
PROC: 0SR904A Replacement of Right Hip Joint with Ceramic on Polyethylene Synthetic Substitute, Uncemented, Open Approach (ICD-10-PCS; CPT 27130; principal; 2018-11-08 12:30)
DX: M87.851 Other osteonecrosis, right femur (principal); Z96.641 Presence of right artificial hip joint; M16.11 Unilateral primary osteoarthritis, right hip; M25.551 Pain in right hip; I10 Essential (primary) hypertension; E11.65 Type 2 diabetes mellitus with hyperglycemia; E78.5 Hyperlipidemia, unspecified; Z79.4 Long term (current) use of insulin
CPT/HCPCS: 27130; 36415; 80048; 85027; 97162; NC; 72170; 73501; J0690; J1885; J2250; J3010; J3490

== ENCOUNTER 2018-11-24 12:25 | Outpatient (CLI) | payer MEDICARE, SELFPAY ==
--- NOTE | 2018-11-24 12:16 | DI.RAD_ITS ---
SYMPTOMS/DIAGNOSIS: FIRST POST OP VISIT, S/P RT NOMI RIGHT HIP AND PELVIS: Two views were obtained and show total hip joint replacement in position on the right. The components appear well seated. Mild degenerative changes of the left hip are noted.
== END 2018-11-24 12:45 ==
PROVIDERS: PCP Family Medicine; Referring Provider Family Medicine; Visit Provider Student in an Organized Health Care Education/Training Program
DX: Z96.641 Presence of right artificial hip joint (principal); Z47.1 Aftercare following joint replacement surgery; M16.12 Unilateral primary osteoarthritis, left hip; I10 Essential (primary) hypertension
CPT/HCPCS: 73502

== ENCOUNTER → 2018-12-08 10:34 | Outpatient (BNVA) | payer MEDICARE, SELFPAY | PROVIDERS: PCP Family Medicine; Referring Provider Family Medicine; Visit Provider Student in an Organized Health Care Education/Training Program | DX: Z96.641 Presence of right artificial hip joint (principal); Z47.1 Aftercare following joint replacement surgery; I10 Essential (primary) hypertension ==

== ENCOUNTER → 2019-01-05 10:24 | Outpatient (BNVA) | payer MEDICARE, SELFPAY | PROVIDERS: PCP Family Medicine; Referring Provider Family Medicine; Visit Provider Student in an Organized Health Care Education/Training Program | DX: Z96.641 Presence of right artificial hip joint (principal); Z47.1 Aftercare following joint replacement surgery; I10 Essential (primary) hypertension; E11.8 Type 2 diabetes mellitus with unspecified complications; Z79.84 Long term (current) use of oral hypoglycemic drugs ==

== ENCOUNTER 2020-07-23 02:12 | Outpatient (CLI) | payer OTHER, SELFPAY ==
[2020-07-23 13:02] LABS: HCT 44.3 % (40.0-50.0); HGB 14.3 g/dL (13.5-17.5); MCH 28.1 pg (27.0-33.0); MCHC 32.3 % (32.0-36.0); MCV 87.2 fL (80-95); MPV 9.8 fL (8.0-11.0); Platelet Count 336 10^3/uL (130-400); RBC 5.08 10^6/uL (4.36-5.78); RDW 13.9 % (11.8-14.1); RDW-SD 44.8 fL; WBC 10.08 10^3/uL (4.4-10.8)
[2020-07-23 13:15] LABS: BUN 11 mg/dL (7-18); CREATININE 1.2 mg/dL (0.70-1.30); Calcium 9.4 mg/dL (8.5-10.1); Chloride 103 mmol/L (98-107); Glucose 180 mg/dL (74-106); Potassium 4.6 mmol/L (3.5-5.1); Sodium 141 mmol/L (136-145)
[2020-07-23 13:36] LABS: Calculated LDL 109 mg/dL (<100); Cholesterol 193 mg/dL (<200); HDL Cholesterol 32 mg/dL (40-60); Triglyceride 260 mg/dL (<150)
[2020-07-23 21:56] LABS: PSA, Screening 0.2 ng/mL (0.0-4.5)
== END 2020-07-23 02:13 | disposition home or self-care (01) ==
LOC: LOS 02:12
PROVIDERS: PCP Family Medicine; Visit Provider Nurse Practitioner Family
DX: I10 Essential (primary) hypertension (principal); E78.5 Hyperlipidemia, unspecified; Z79.84 Long term (current) use of oral hypoglycemic drugs; E11.9 Type 2 diabetes mellitus without complications; Z12.5 Encounter for screening for malignant neoplasm of prostate; Z00.00 Encounter for general adult medical examination without abnormal findings
CPT/HCPCS: 36415; 80048; 80061; 84153; 85027

== ENCOUNTER 2021-01-01 15:20 | Outpatient (REF) | payer OTHER, SELFPAY ==
[2021-01-01 19:47] LABS: COMMENT (LAB VIEW ONLY) 24.61 mg/dL
[2021-01-01 19:53] LABS: Microalb ug/mg Crea 119.1 ug/mg Cr
== END 2021-01-01 15:21 | disposition home or self-care (01) ==
LOC: LBN 15:20
PROVIDERS: PCP Family Medicine; Visit Provider Family Medicine
DX: E11.9 Type 2 diabetes mellitus without complications (principal)
CPT/HCPCS: 82043; 82570

== ENCOUNTER 2021-04-18 04:35 | Outpatient (CLI) | payer MEDICARE, SELFPAY ==
[2021-04-18 12:01] LABS: Anion Gap 13.5 mmol/L (3-11); BUN 12 mg/dL (7-18); CO2 23.5 mmol/L (21.0-32.0); CREATININE 1.2 mg/dL (0.70-1.30); Calcium 9.7 mg/dL (8.5-10.1); Chloride 99 mmol/L (98-107); Estimated GFR 59.86 (mL/min/1.73m2); Glucose 170 mg/dL (74-106); Potassium 4.7 mmol/L (3.5-5.1); Sodium 136 mmol/L (136-145)
== END 2021-04-18 04:36 | disposition home or self-care (01) ==
LOC: LBO 04:35
PROVIDERS: PCP Family Medicine; Visit Provider Family Medicine
DX: E11.9 Type 2 diabetes mellitus without complications
CPT/HCPCS: 36415; 80048

== ENCOUNTER 2022-01-08 03:59 | Outpatient (CLI) | payer MEDICARE, SELFPAY ==
[2022-01-08 12:49] LABS: Anion Gap 12.1 mmol/L (3-11); BUN 11 mg/dL (7-18); CO2 24.9 mmol/L (21.0-32.0); CREATININE 1.3 mg/dL (0.70-1.30); Calcium 9.6 mg/dL (8.5-10.1); Chloride 100 mmol/L (98-107); Glucose 233 mg/dL (74-106); Hemoglobin A1C 7.7 % (<5.7); Potassium 4.2 mmol/L (3.5-5.1); Sodium 137 mmol/L (136-145)
[2022-01-08 12:53] LABS: COMMENT (LAB VIEW ONLY) 100.14 mg/dL; Microalb ug/mg Crea 28.5 ug/mg Cr
== END 2022-01-08 04:00 | disposition home or self-care (01) ==
LOC: LOS 03:59
PROVIDERS: PCP Family Medicine; Visit Provider Family Medicine
DX: E11.65 Type 2 diabetes mellitus with hyperglycemia (principal); I10 Essential (primary) hypertension; E66.9 Obesity, unspecified; E11.29 Type 2 diabetes mellitus with other diabetic kidney complication; R80.9 Proteinuria, unspecified
CPT/HCPCS: 36415; 80048; 82043; 82570; 83036

== ENCOUNTER 2023-01-19 21:28 | Outpatient (REF) | payer MEDICARE, SELFPAY ==
[2023-01-19 21:15] LABS: ALT 27 U/L (16-63); AST 17 U/L (15-37); Albumin 3.9 g/dL (3.4-5.0); Alkaline Phosphatase 84 U/L (46-116); BUN 13 mg/dL (7-18); Bilirubin, Total 0.3 mg/dL (0.2-1.0); CREATININE 1.1 mg/dL (0.70-1.30); Calcium 9.9 mg/dL (8.5-10.1); Calculated LDL 123 mg/dL (<100); Chloride 104 mmol/L (98-107); Cholesterol 225 mg/dL (<200); Estimated GFR 71.77 (mL/min/1.73m2); Glucose 121 mg/dL (74-106); HDL Cholesterol 38 mg/dL (40-60); Potassium 4.5 mmol/L (3.5-5.1); Sodium 139 mmol/L (136-145); Total Protein 7.4 g/dL (6.4-8.2); Triglyceride 320 mg/dL (<150)
[2023-01-19 22:05] LABS: Hemoglobin A1C 6.7 % (<5.7)
== END 2023-01-19 21:29 | disposition home or self-care (01) ==
LOC: LBN 21:28
PROVIDERS: PCP Family Medicine; Visit Provider Family Medicine
DX: E78.5 Hyperlipidemia, unspecified (principal); E11.29 Type 2 diabetes mellitus with other diabetic kidney complication; R80.9 Proteinuria, unspecified
CPT/HCPCS: 80053; 80061; 83036

== ENCOUNTER 2023-01-21 13:49 | Outpatient (REF) | payer MEDICARE, SELFPAY ==
[2023-01-21 22:30] LABS: COMMENT (LAB VIEW ONLY) 99.02 mg/dL; Microalb ug/mg Crea 16.7 ug/mg Cr
== END 2023-01-21 13:50 | disposition home or self-care (01) ==
LOC: LBN 13:49
PROVIDERS: PCP Family Medicine; Visit Provider Family Medicine
DX: E11.29 Type 2 diabetes mellitus with other diabetic kidney complication (principal); R80.8 Other proteinuria
CPT/HCPCS: 82043; 82570

== ENCOUNTER 2024-03-08 04:22 | Outpatient (CLI) | payer MEDICARE, SELFPAY ==
[2024-03-08 12:13] LABS: ALT 48 U/L (16-63); AST 28 U/L (15-37); Albumin 3.7 g/dL (3.4-5.0); Alkaline Phosphatase 66 U/L (46-116); Anion Gap 9.6 mmol/L (3-11); BUN 6 mg/dL (7-18); Bilirubin, Total 0.39 mg/dL (0.2-1.0); CO2 25.4 mmol/L (21.0-32.0); CREATININE 1.2 mg/dL (0.70-1.30); Calcium 9.3 mg/dL (8.5-10.1); Calculated LDL 117 mg/dL (<100); Chloride 107 mmol/L (98-107); Cholesterol 194 mg/dL (<200); Estimated GFR 64.25 (mL/min/1.73m2); Glucose 131 mg/dL (74-106); HDL Cholesterol 46 mg/dL (40-60); Potassium 4.3 mmol/L (3.5-5.1); Sodium 142 mmol/L (136-145); Total Protein 7.6 g/dL (6.4-8.2); Triglyceride 156 mg/dL (<150); Vitamin B12 294 pg/mL (193-986)
[2024-03-08 12:26] LABS: Hemoglobin A1C 6.8 % (<5.7)
== END 2024-03-08 04:23 | disposition home or self-care (01) ==
LOC: LBO 04:22
PROVIDERS: PCP Family Medicine; Visit Provider Family Medicine
DX: E11.29 Type 2 diabetes mellitus with other diabetic kidney complication; R80.9 Proteinuria, unspecified; E11.9 Type 2 diabetes mellitus without complications
CPT/HCPCS: 36415; 80053; 80061; 82043; 82570; 82607; 83036

== ENCOUNTER 2024-03-10 13:29 | Outpatient (REF) | payer MEDICARE, SELFPAY ==
[2024-03-10 12:36] LABS: COMMENT (LAB VIEW ONLY) 116.59 mg/dL; Microalb ug/mg Crea 10.3 ug/mg Cr
== END 2024-03-10 13:30 | disposition home or self-care (01) ==
LOC: LBN 13:29
PROVIDERS: PCP Family Medicine; Visit Provider Family Medicine
DX: E11.9 Type 2 diabetes mellitus without complications (principal); E11.29 Type 2 diabetes mellitus with other diabetic kidney complication; R80.9 Proteinuria, unspecified
CPT/HCPCS: 82043; 82570